=== PATIENT | female | born 1965 | race Caucasian/White ===

== ENCOUNTER → 2021-03-25 | Outpatient (CLI) | payer OTHER ==
[~2021-03-25] MED LIST: AIMOVIG AU70 MG/1 ML SQ; ALLERGY RELIEF180 MG PO; ASPIRIN EC325 MG PO; ATORVASTATIN CA20 MG PO; BUDESONIDE-FO10.2 GM INH; CELEBREX200 MG PO; DEXILANT60 MG PO; DICYCLOMINE HCL20 MG PO; DOXEPIN HCL10 MG PO; ELIQUIS2.5 MG PO; ESTRADIOL2 MG PO; EUTHYROX150 MCG PO; FLUTICASONE; IBUPROFEN600 MG PO; IMODIUM A-1 MG/7.5 M PO; IRON325 M1 PO; METHYLPREDNISOLO4 MG PO; MYRBETRIQ50 MG PO; NEURONTIN300 MG PO; NEXIUM40 MG PO; OXYCODON-ACETA1 EAC1 PO; PERCOCET 10-321 EACH PO; PREDNISONE10 MG PO; PROZAC20 MG PO; ROPINIROLE HCL1 MG PO; SIMETHICONE125 MG PO; SINGULAIR10 MG PO; STOOL SOFTENER240 MG PO; TOLTERODINE TART1 MG PO; UBRELVY100 MG PO; VITAMIN D350 MC3 PO; ZOFRAN4 MG PO
[2021-03-25 09:08] LABS: RED BLOOD COUNT 4.55 M/UL (4.00-5.10); WHITE BLOOD COUNT 7.9 K/UL (4.5-11.0)
[2021-03-25 09:51] LABS: BUN/CREATININE RATIO 17 (0-10)
== END ==
LOC: OPSV2 08:00 → EDSTATUS 08:00 → OPSV2 08:08
PROVIDERS: Orthopaedic Surgery
DX: Z01.818 Encounter for other preprocedural examination (principal); M17.12 Unilateral primary osteoarthritis, left knee
CPT/HCPCS: 36415; 80048; 85025; 87081; 93005

== ENCOUNTER → 2021-03-30 | Outpatient (CLI) | payer OTHER | LOC: LAB 12:59 | PROVIDERS: Orthopaedic Surgery | DX: Z01.818 Encounter for other preprocedural examination (principal); M17.12 Unilateral primary osteoarthritis, left knee | CPT/HCPCS: 36415; 80048; 86850; 86900; 86901; 87086 ==

== ENCOUNTER → 2021-04-07 | Outpatient (CLI) | payer OTHER ==
[2021-04-07 15:39] LABS: BUN/CREATININE RATIO 15 (0-10)
== END ==
LOC: LAB 12:50
PROVIDERS: Orthopaedic Surgery
DX: Z01.812 Encounter for preprocedural laboratory examination (principal); M17.12 Unilateral primary osteoarthritis, left knee
CPT/HCPCS: 36415; 80048; 86850; 86900; 86901

== ENCOUNTER → 2021-04-08 | Day surgery (SDC) | payer OTHER ==
[~2021-04-08] VITALS: Ht 157.5 cm; Wt 101.6 kg
== END | disposition home or self-care (01) ==
LOC: OR 07:22 → EDSTATUS 10:45
DX: M17.12 Unilateral primary osteoarthritis, left knee (principal); E66.01 Morbid (severe) obesity due to excess calories; E78.5 Hyperlipidemia, unspecified; G43.909 Migraine, unspecified, not intractable, without status migrainosus; J45.909 Unspecified asthma, uncomplicated; G47.30 Sleep apnea, unspecified; K21.9 Gastro-esophageal reflux disease without esophagitis; E03.9 Hypothyroidism, unspecified; F32.9 Major depressive disorder, single episode, unspecified; F41.0 Panic disorder [episodic paroxysmal anxiety]; Z68.41 Body mass index [BMI] 40.0-44.9, adult; Z88.5 Allergy status to narcotic agent; Z79.899 Other long term (current) drug therapy
CPT/HCPCS: 73560; 97161; 97165; 97535; C1713; C1776; J0171; J0690; J1100; J1170; J1200; J1885; J2250; J2405; J2704; J2795; J3010; J3370; J3475; J7030; J7120

== ENCOUNTER → 2021-11-01 | Outpatient (CLI) | payer MEDICARE, OTHER | LOC: EMI 10-28 11:15 | DX: G89.0 Central pain syndrome (principal) | CPT/HCPCS: 70551 ==